=== PATIENT | male | born 1985 | race American Indian/Alaskan Native ===

== ENCOUNTER 2019-06-05 20:22 | Emergency (ER) | payer SELFPAY ==
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
[2019-06-05] MEDS ORDERED: IBUPROFEN 800 MG TAB PO ONE (22:42)
[2019-06-05] MEDS ORDERED: LIDOCAINE 2% JELLY 30 ML TP ONE (22:42)
[2019-06-05 23:27] VITALS: BP 140/87
== END 2019-06-05 23:27 | disposition home or self-care (01) ==
LOC: ED 20:22
DX: T20.10XA Burn of first degree of head, face, and neck, unspecified site, initial encounter (principal); F17.200 Nicotine dependence, unspecified, uncomplicated; Z79.899 Other long term (current) drug therapy; X15.0XXA Contact with hot stove (kitchen), initial encounter; Y93.89 Activity, other specified; Y92.89 Other specified places as the place of occurrence of the external cause; Y99.8 Other external cause status